=== PATIENT | female | born 1975 | race Caucasian/White ===

== ENCOUNTER 2017-07-06 00:33 | Emergency (ER) | payer SELFPAY ==
[2017-07-06 01:05] VITALS: BP 113/76; PULSE 90; RESP 16; TEMP 97.9; O2SAT 100
== END 2017-07-06 02:23 | disposition left against medical advice (07) ==
LOC: C.ER 00:33
DX: L72.8 Other follicular cysts of the skin and subcutaneous tissue (principal); Z02.9 Encounter for administrative examinations, unspecified

== ENCOUNTER 2017-08-12 02:21 | Emergency (ER) | payer MEDICAID ==
[2017-08-12 02:45] VITALS: BP 114/80; PULSE 92; RESP 18; TEMP 98.4; O2SAT 100
[2017-08-12] MEDS ORDERED: DiphenhydrAMINE 12.5 mg/5 ml LIQ UD (5 ml) ONE (05:14)
== END 2017-08-12 02:47 | disposition left against medical advice (07) ==
LOC: C.ER 02:21
DX: R51 Headache (principal); Z02.9 Encounter for administrative examinations, unspecified

== ENCOUNTER 2017-08-28 19:31 | Emergency (ER) | payer MEDICAID ==
[2017-08-28 20:01] VITALS: BP 124/84; PULSE 86; RESP 20; TEMP 97.7; O2SAT 100
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
== END 2017-08-28 21:45 | disposition home or self-care (01) ==
LOC: C.ER 19:31
DX: S20.212A Contusion of left front wall of thorax, initial encounter (principal); Y04.0XXA Assault by unarmed brawl or fight, initial encounter

== ENCOUNTER 2017-10-20 01:50 | Emergency (ER) | payer MEDICAID, OTHER ==
[2017-10-20 02:12] VITALS: BP 125/90; PULSE 100; RESP 20; TEMP 97.5; O2SAT 100
== END 2017-10-20 02:14 | disposition left against medical advice (07) ==
LOC: C.ER 01:50
DX: Z02.89 Encounter for other administrative examinations (principal); R10.9 Unspecified abdominal pain

== ENCOUNTER 2017-11-14 09:36 | Emergency (ER) | payer MEDICAID, OTHER ==
[2017-11-14 09:52] VITALS: RESP 18
[2017-11-14 10:20] LABS: HCG,QUALITATIVE URINE NEGATIVE (NEGATIVE)
[2017-11-14 10:26] LABS: SQUAMOUS EPITHIAL 2 /hpf (0-5); URINE AMORPHOUS SEDIMENT RARE /ul (<OCC); URINE BILIRUBIN NEGATIVE (NEGATIVE); URINE BLOOD NEGATIVE (NEGATIVE); URINE CLARITY Hazy (Clear); URINE COLOR Yellow (YELLOW); URINE GLUCOSE (UA) NORMAL (Normal); URINE LEUKOCYTE ESTERASE NEG Leu/uL (Negative); URINE NITRATE NEGATIVE (NEGATIVE); URINE PROTEIN NEGATIVE (NEGATIVE); URINE UROBILINOGEN NORMAL mg/dL (0.2-1.0)
--- NOTE | 2017-11-14 11:00 | C.PDOC ---
History Of Present Illness 42 y/o female presents to the ER complaining of bilateral flank pain which has been present for 1 month. Patient reports that the pain has been radiating to her lower abdomen. Patient states that she has not seen her PCP for her pain. Patient reports that she has frequent urination. Patient denies having dysuria and other medical problems. Time Seen by Provider: 11/14/17 09:43 Chief Complaint (Nursing): Back Pain History Per: Patient History/Exam Limitations: no limitations Onset/Duration Of Symptoms: Days Current Symptoms Are (Timing): Still Present Severity: Moderate Past Medical History Reviewed: Historical Data, Nursing Documentation, Vital Signs Vital Signs: Last Vital Signs Temp 97.5 F L 11/14/17 12:30 Pulse 88 11/14/17 12:30 Resp 18 11/14/17 12:30 BP 145/88 11/14/17 12:30 Pulse Ox 97 11/14/17 12:30 - Medical History PMH: Anxiety, Asthma, Depression, Gastritis, Migraine Denies: Chronic Kidney Disease Surgical History: No Surg Hx Family History: States: No Known Family Hx - Social History Hx Tobacco Use: Yes Hx Alcohol Use: Yes Hx Substance Use: Yes - Immunization History Hx Tetanus Toxoid Vaccination: Yes Hx Influenza Vaccination: Yes Hx Pneumococcal Vaccination: No Review Of Systems Except As Marked, All Systems Reviewed And Found Negative. Gastrointestinal: Positive for: Abdominal Pain (bilateral flank pain which radiates to lower abdomen) Genitourinary: Positive for: Frequency. Negative for: Dysuria Physical Exam - Physical Exam Appears: Non-toxic, No Acute Distress Skin: Normal Color, Warm Head: Atraumatic, Normacephalic Eye(s): bilateral: Normal Inspection, PERRL Ear(s): Bilateral: Normal Nose: Normal Oral Mucosa: Moist Neck: Supple Gastrointestinal/Abdominal: Normal Exam, Soft, No Tenderness Back: CVA Tenderness (bilateral ) Extremity: Normal ROM Neurological/Psych: Oriented x3, Normal Speech, Normal Cognition, Normal Motor, Normal Sensation ED Course And Treatment O2 Sat by Pulse Oximetry: 100 (RA) Pulse Ox Interpretation: Normal Medical Decision Making Medical Decision Making: Impression: Female with flank pain test- negative UA wnl UTox positive for cocaine. Patient admits to drinking a lot of beer which may account for her frequent urination. Disposition Counseled Patient/Family Regarding: Studies Performed, Diagnosis, Need For Followup, Rx Given - Disposition Referrals: [facility] [Outside] Disposition: HOME/ ROUTINE Disposition Time: 12:21 Condition: STABLE Prescriptions: Albuterol 0.083% [Albuterol Sulfate 3 Ml] 0.5 ml IH TID #12 neb Ibuprofen [Motrin] 600 mg PO TID #15 tab Instructions: Back Pain (ED) Forms: [employer] (Serbian), Work Excuse - POA Present On Arrival: None - Clinical Impression Clinical Impression: Low back pain - Scribe Statement The provider has reviewed the documentation as recorded by the Lorinibfatmata Li Provider Attestation: All medical record entries made by the Lorinibe were at my direction and personally dictated by me. I have reviewed the chart and agree that the record accurately reflects my personal performance of the history, physical exam, medical decision making, and the department course for this patient. I have also personally directed, reviewed, and agree with the discharge instructions and disposition.
[2017-11-14 11:31] LABS: BARBITURATES, UR NEGATIVE (NEGATIVE); OPIATES, UR NEGATIVE (NEGATIVE); PHENCYCLIDINE, UR NEGATIVE (NEGATIVE)
[2017-11-14 11:53] LABS: BENZODIAZEPINES, UR POSITIVE (NEGATIVE)
[2017-11-14 13:01] VITALS: BP 145/88; PULSE 88; TEMP 97.5
[2017-11-14 13:11] VITALS: O2SAT 100
== END 2017-11-14 13:12 | disposition home or self-care (01) ==
LOC: C.ER 09:36
DX: M54.5 Low back pain (principal)
CPT/HCPCS: 80324; 80345; 80346; 80349; 80353; 80358; 80361; 81001; 83992; 84703; 87086; 96372; 99285; J1885

== ENCOUNTER 2018-11-25 18:50 | Emergency (ER) | payer MEDICAID ==
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
[2018-11-25 19:16] VITALS: RESP 18; O2SAT 100
[2018-11-25] MEDS ORDERED: Bacitracin 500 Units/gm Oint Foilpak UD ONE (21:12)
[2018-11-25 21:51] VITALS: BP 141/86; PULSE 90; TEMP 98.1
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
--- NOTE | 2018-11-26 10:04 | CT ---
CT cervical spine HISTORY: Trauma. Comparison: None available. Technique: Multiple contiguous axial images were performed through the cervical spine without the use of intravenous contrast. Subsequently, sagittal and coronal reformatted images were obtained. This CT exam was performed using one or more of the following dose reduction techniques: Automated exposure control, adjustment of the mA and/or kV according to patient size, and/or use of iterative reconstruction technique. Findings: Small posterior disc osteophyte complexes at the C4-5, C6-7, and C7-T1 levels. Anterior osteophytosis at the C5-6 level. No significant prevertebral soft tissue swelling. Impression: Negative acute. Degenerative changes. If pain persists, consider correlation with MRI. A preliminary report was generated at 8:57 p.m. on 11/25/[address] Alton Interiano from [facility].
== END 2018-11-25 22:02 | disposition home or self-care (01) ==
LOC: C.ER 18:50
DX: S09.90XA Unspecified injury of head, initial encounter (principal); S63.253A Unspecified dislocation of left middle finger, initial encounter; S00.12XA Contusion of left eyelid and periocular area, initial encounter; S00.531A Contusion of lip, initial encounter; S60.222A Contusion of left hand, initial encounter; S60.221A Contusion of right hand, initial encounter; Y08.89XA Assault by other specified means, initial encounter